=== PATIENT | female | born 1940 | race Caucasian/White ===

== ENCOUNTER 2022-03-05 14:58 | Outpatient (RCR) | payer MEDICARE, SELFPAY ==
[2022-03-05] MEDS: FAMOTIDINE 20 MG TABLET PO (15:18)
[2022-03-05] MEDS: ACETAMINOPHEN 325 MG TABLET 650 MG PO (15:18)
[2022-03-05] MEDS: diphenhydrAMINE HCl CAP 25 MG CAPSULE PO (15:18)
[2022-03-05] MEDS: BEBTELOVIMAB 175 MG/2 ML VIAL IV PUSH (15:40)
[2022-03-05 15:41] VITALS: BP 143/73; PULSE 60; RESP 20; TEMP 36.7; O2SAT 97
[2022-03-05 16:20] VITALS: BP 129/60; PULSE 60; O2SAT 98
== END 2022-03-05 16:00 ==
LOC: AMCINF 14:58
PROVIDERS: PCP Physician Assistant; Visit Provider Internal Medicine Hematology & Oncology
DX: U07.1 COVID-19 (principal); I10 Essential (primary) hypertension; I25.10 Atherosclerotic heart disease of native coronary artery without angina pectoris
CPT/HCPCS: A9270; M0222; Q0222

== ENCOUNTER → 2022-12-08 12:00 | Outpatient (CLI) | payer MEDICARE, SELFPAY ==
--- NOTE | ~2022-12-08 | XR_ITS ---
XR chest 2V 12/08/2022 12:17 Indication: Cough Procedure: 2 view chest Comparison: 11/11/2011 Findings: Heart size normal. Pacemaker leads in expected position. No focal air space disease, pulmon luis edema, pleural effusion or suspected pneumothorax. There is atherosclerosis of the aorta. There a re coarse calcifications overlying the cardiac contour. No acute osseous abnormality. Impression: 1: No acute cardiopulmonary disease. Reviewed, dictated and finalized at location L. ANICAL DRAFTER Impression: 1: No acute cardiopulmonary disease.
== END ==
PROVIDERS: PCP Family Medicine; Visit Provider Family Medicine
DX: R05.9 Cough, unspecified (principal)
CPT/HCPCS: 71046

== ENCOUNTER 2022-12-15 08:01 | Outpatient (CLI) | payer MEDICARE, SELFPAY ==
[2022-12-15 10:09] LABS: Kit Draw Collected
== END 2022-12-15 08:02 | disposition home or self-care (01) ==
LOC: ANHGOSHLAB 08:03
PROVIDERS: PCP Family Medicine; Visit Provider Family Medicine
DX: E87.1 Hypo-osmolality and hyponatremia (principal)
CPT/HCPCS: 36415

== ENCOUNTER 2023-04-02 08:15 | Outpatient (CLI) | payer MEDICARE, SELFPAY ==
[2023-04-02 16:31] LABS: Hematocrit 39.9 % (37.0-47.0); Hemoglobin 13.5 g/dL (12.0-15.0); Mean Corpuscular HGB Conc 33.8 g/dl (32-36); Mean Corpuscular Volume 97.6 fl (80-100); Mean Platelet Volume 10.5 fl (7.4-10.4); Platelet Count Result 209 k/mm3 (150-375); Red Blood Count 4.09 M/mm3 (4.2-5.4); Red Cell Distribution Width 12.4 % (11.5-14.5); White Blood Count 4.5 K/mm3 (4.5-10.0)
[2023-04-02 16:35] LABS: Hemoglobin A1C 5.6 % (<5.7)
[2023-04-02 16:43] LABS: Alanine Aminotransferase 24 U/L (6-35); Albumin Level 4.1 g/dL (3.5-5.1); Alkaline Phosphatase 102 U/L (38-126); Anion Gap 5 mmol/L (8-16); Aspartate Amino Transferase 41 U/L (14-36); Bilirubin,Total 1.4 mg/dL (0.2-1.3); Blood Urea Nitrogen 13 mg/dL (7-17); Calcium 9.5 mg/dL (8.4-10.2); Carbon Dioxide 33 mmol/L (22-30); Chloride 89 mmol/L (98-107); Cholesterol 106 mg/dL (0-200); Estimated Glomerular Filt Rate > 60; Glucose 100 mg/dL (65-110); HDL Direct 43 mg/dL; Potassium 4.2 mmol/L (3.4-5.0); Sodium 127 mmol/L (137-145); Triglycerides 103 mg/dL (<150)
[2023-04-02 16:54] LABS: LDL Cholesterol Direct 40 mg/dL
[2023-04-02 17:09] LABS: Thyroid Stimulating Hormone 0.545 uIU/mL (0.465-4.680)
== END 2023-04-02 08:16 | disposition home or self-care (01) ==
LOC: ANHGOSHLAB 08:21
PROVIDERS: PCP Family Medicine; Visit Provider Family Medicine
DX: E66.3 Overweight (principal); R73.03 Prediabetes; E78.2 Mixed hyperlipidemia; I10 Essential (primary) hypertension
CPT/HCPCS: 36415; 80053; 80061; 83036; 84443; 85027

== ENCOUNTER 2023-08-04 08:00 | Outpatient (CLI) | payer MEDICARE, SELFPAY ==
[2023-08-04 18:37] LABS: Hematocrit 43.9 % (37.0-47.0); Hemoglobin 14.8 g/dL (12.0-15.0); Mean Corpuscular HGB Conc 33.7 g/dl (32-36); Mean Corpuscular Volume 97.8 fl (80-100); Mean Platelet Volume 11.3 fl (7.4-10.4); Platelet Count Result 200 k/mm3 (150-375); Red Blood Count 4.49 M/mm3 (4.2-5.4); Red Cell Distribution Width 12.3 % (11.5-14.5); White Blood Count 6.6 K/mm3 (4.5-10.0)
[2023-08-04 18:53] LABS: Iron 109 ug/dL (37-170)
[2023-08-04 19:02] LABS: Percent Iron Saturation 29 % (20-50)
[2023-08-04 19:23] LABS: Alanine Aminotransferase 27 U/L (6-35); Albumin Level 4.6 g/dL (3.5-5.1); Alkaline Phosphatase 115 U/L (38-126); Anion Gap 7 mmol/L (8-16); Aspartate Amino Transferase 38 U/L (14-36); Bilirubin,Total 1.5 mg/dL (0.2-1.3); Blood Urea Nitrogen 27 mg/dL (7-17); Calcium 10.1 mg/dL (8.4-10.2); Carbon Dioxide 30 mmol/L (22-30); Chloride 90 mmol/L (98-107); Cholesterol 106 mg/dL (0-200); Estimated Glomerular Filt Rate 60; Glucose 101 mg/dL (65-110); HDL Direct 47 mg/dL; Potassium 4.1 mmol/L (3.4-5.0); Sodium 127 mmol/L (137-145); Triglycerides 87 mg/dL (<150)
[2023-08-04 19:34] LABS: LDL Cholesterol Direct 46 mg/dL
[2023-08-04 19:53] LABS: Thyroid Stimulating Hormone 0.835 uIU/mL (0.465-4.680)
[2023-08-04 20:28] LABS: Folic Acid 18.4 ng/mL (2.76->20)
[2023-08-04 20:37] LABS: Hemoglobin A1C 5.6 % (<5.7)
== END 2023-08-04 08:01 | disposition home or self-care (01) ==
PROVIDERS: PCP Family Medicine; Visit Provider Family Medicine
DX: D64.9 Anemia, unspecified (principal); E66.3 Overweight; E78.2 Mixed hyperlipidemia; E87.1 Hypo-osmolality and hyponatremia; I10 Essential (primary) hypertension; R73.03 Prediabetes; Z79.899 Other long term (current) drug therapy
CPT/HCPCS: 36415; 80053; 80061; 82607; 82728; 82746; 83036; 83540; 83550; 84443; 85027

== ENCOUNTER 2023-12-22 08:41 | Outpatient (CLI) | payer MEDICARE, SELFPAY ==
[2023-12-22 20:52] LABS: Alanine Aminotransferase 30 U/L (6-35); Albumin Level 4.4 g/dL (3.5-5.1); Alkaline Phosphatase 143 U/L (38-126); Anion Gap 9 mmol/L (8-16); Aspartate Amino Transferase 81 U/L (14-36); Bilirubin,Total 1.2 mg/dL (0.2-1.3); Blood Urea Nitrogen 18 mg/dL (7-17); Calcium 10.2 mg/dL (8.4-10.2); Carbon Dioxide 30 mmol/L (22-30); Chloride 91 mmol/L (98-107); Cholesterol 111 mg/dL (0-200); Estimated Glomerular Filt Rate > 60; Glucose 92 mg/dL (65-110); HDL Direct 45 mg/dL; Potassium 3.8 mmol/L (3.4-5.0); Sodium 130 mmol/L (137-145); Triglycerides 96 mg/dL (<150)
[2023-12-22 21:03] LABS: LDL Cholesterol Direct 50 mg/dL
== END 2023-12-22 08:42 | disposition home or self-care (01) ==
LOC: ANHGOSHLAB 08:43
PROVIDERS: PCP Family Medicine; Visit Provider Family Medicine
DX: R73.03 Prediabetes (principal); E66.3 Overweight; E78.5 Hyperlipidemia, unspecified; I10 Essential (primary) hypertension; Z79.899 Other long term (current) drug therapy
CPT/HCPCS: 36415; 80053; 80061; 83036

== ENCOUNTER 2024-01-20 08:22 | Outpatient (CLI) | payer MEDICARE, SELFPAY ==
[2024-01-20 13:14] LABS: Hematocrit 43.6 % (37.0-47.0); Hemoglobin 14.1 g/dL (12.0-15.0); Mean Corpuscular HGB Conc 32.3 g/dl (32-36); Mean Corpuscular Hemoglobin 32.3 pg (26-34); Mean Corpuscular Volume 99.8 fl (80-100); Mean Platelet Volume 10.7 fl (7.4-10.4); Platelet Count Result 221 k/mm3 (150-375); Red Blood Count 4.37 M/mm3 (4.2-5.4); Red Cell Distribution Width 12.4 % (11.5-14.5); White Blood Count 5.4 K/mm3 (4.5-10.0)
[2024-01-20 13:32] LABS: Alanine Aminotransferase 26 U/L (6-35); Albumin Level 4.3 g/dL (3.5-5.1); Alkaline Phosphatase 102 U/L (38-126); Anion Gap 4 mmol/L (4-12); Aspartate Amino Transferase 95 U/L (14-36); Bilirubin,Total 1.2 mg/dL (0.2-1.3); Blood Urea Nitrogen 15 mg/dL (7-17); Calcium 10.2 mg/dL (8.4-10.2); Carbon Dioxide 33 mmol/L (22-30); Chloride 94 mmol/L (98-107); Cholesterol 99 mg/dL (0-200); Estimated Glomerular Filt Rate > 60; Glucose 93 mg/dL (65-110); HDL Direct 39 mg/dL; Potassium 3.7 mmol/L (3.4-5.0); Sodium 131 mmol/L (137-145); Triglycerides 88 mg/dL (<150)
[2024-01-20 13:43] LABS: LDL Cholesterol Direct 43 mg/dL
[2024-01-20 14:02] LABS: Thyroid Stimulating Hormone 0.794 uIU/mL (0.465-4.680)
[2024-01-20 23:49] LABS: Hemoglobin A1C 5.8 % (<5.7)
== END 2024-01-20 08:23 | disposition home or self-care (01) ==
PROVIDERS: PCP Family Medicine; Visit Provider Family Medicine
DX: Z79.899 Other long term (current) drug therapy (principal); D64.9 Anemia, unspecified; E78.5 Hyperlipidemia, unspecified; E87.1 Hypo-osmolality and hyponatremia; I10 Essential (primary) hypertension; R73.03 Prediabetes; R74.8 Abnormal levels of other serum enzymes
CPT/HCPCS: 36415; 80053; 80061; 83036; 84443; 85027

== ENCOUNTER 2024-04-26 08:18 | Outpatient (CLI) | payer MEDICARE, SELFPAY ==
[2024-04-26 12:50] LABS: Hematocrit 40.5 % (37.0-47.0); Hemoglobin 13.5 g/dL (12.0-15.0); Mean Corpuscular HGB Conc 33.3 g/dl (32-36); Mean Corpuscular Hemoglobin 32.9 pg (26-34); Mean Corpuscular Volume 98.8 fl (80-100); Mean Platelet Volume 11.4 fl (7.4-10.4); Platelet Count Result 196 k/mm3 (150-375)
[2024-04-26 13:12] LABS: Alanine Aminotransferase 23 U/L (6-35); Albumin Level 4.3 g/dL (3.5-5.1); Alkaline Phosphatase 104 U/L (38-126); Anion Gap 8 mmol/L (4-12); Aspartate Amino Transferase 59 U/L (14-36); Bilirubin,Total 1.4 mg/dL (0.2-1.3); Blood Urea Nitrogen 19 mg/dL (7-17); Calcium 9.8 mg/dL (8.4-10.2); Carbon Dioxide 31 mmol/L (22-30); Chloride 93 mmol/L (98-107); Estimated Glomerular Filt Rate > 60; Glucose 86 mg/dL (65-110); Potassium 3.6 mmol/L (3.4-5.0); Sodium 132 mmol/L (137-145)
[2024-04-26 21:23] LABS: Hemoglobin A1C 6.1 % (<5.7)
== END 2024-04-26 08:19 | disposition home or self-care (01) ==
PROVIDERS: PCP Family Medicine; Visit Provider Family Medicine
DX: D64.9 Anemia, unspecified (principal); E87.1 Hypo-osmolality and hyponatremia; R73.03 Prediabetes; E78.5 Hyperlipidemia, unspecified; I10 Essential (primary) hypertension; Z79.899 Other long term (current) drug therapy
CPT/HCPCS: 36415; 80053; 83036; 85027

== ENCOUNTER 2024-09-20 12:31 | Outpatient (CLI) | payer MEDICARE, SELFPAY ==
[2024-09-20 18:57] LABS: Hematocrit 41.2 % (37.0-47.0); Hemoglobin 13.5 g/dL (12.0-15.0); Mean Corpuscular HGB Conc 32.8 g/dl (32-36); Mean Corpuscular Hemoglobin 32.2 pg (26-34); Mean Corpuscular Volume 98.3 fl (80-100); Platelet Count Result 194 k/mm3 (150-375); Red Blood Count 4.19 M/mm3 (4.2-5.4); Red Cell Distribution Width 12.6 % (11.5-14.5); White Blood Count 6.4 K/mm3 (4.5-10.0)
[2024-09-20 21:19] LABS: Alanine Aminotransferase 24 U/L (6-35); Albumin Level 4.1 g/dL (3.5-5.1); Alkaline Phosphatase 96 U/L (38-126); Anion Gap 4 mmol/L (4-12); Aspartate Amino Transferase 58 U/L (14-36); Bilirubin,Total 1.4 mg/dL (0.2-1.3); Blood Urea Nitrogen 20 mg/dL (7-17); Calcium 9.5 mg/dL (8.4-10.2); Carbon Dioxide 32 mmol/L (22-30); Chloride 91 mmol/L (98-107); Cholesterol 115 mg/dL (0-200); Estimated Glomerular Filt Rate > 60; Glucose 95 mg/dL (65-110); HDL Direct 45 mg/dL; Sodium 127 mmol/L (137-145); Triglycerides 76 mg/dL (<150)
[2024-09-20 21:30] LABS: LDL Cholesterol Direct 40 mg/dL
[2024-09-20 21:45] LABS: Thyroid Stimulating Hormone 0.774 uIU/mL (0.465-4.680)
[2024-09-21 00:29] LABS: Hemoglobin A1C 5.9 % (<5.7)
== END 2024-09-20 12:32 | disposition home or self-care (01) ==
PROVIDERS: PCP Family Medicine; Visit Provider Nurse Practitioner
DX: E78.2 Mixed hyperlipidemia (principal); E55.9 Vitamin D deficiency, unspecified; R73.03 Prediabetes
CPT/HCPCS: 36415; 80053; 80061; 82306; 83036; 84443; 85027

== ENCOUNTER 2025-02-06 08:09 | Outpatient (CLI) | payer MEDICARE, SELFPAY ==
--- OUTSIDE RECORDS SUMMARY | 2025-02-06 08:19 | XMS_ITS | Encounter Summary ---
Author Organization [facility], [facility] Address [address] [place] [address] Phone Care Team Providers Care Pipe Layer Name Role Phone Bear Love MD Primary Care Provider [phone] Unknown, Notinfile Primary Care Provider Unavail able Unknown, Notinfile Primary Care Provider Unavail able VerSharda prather DO Primary Care Provider [phone] Encounter Details Date Type Department Care Team (Late st Contact Info) Description 07/11/2017 Orders Only [facility] Provider, MD Maya [address] [place] [id number] Social History Tobacco Use Types Packs/Day Years Used Date Smoking Tobacco: Never Assessed Comments Unknown Sex and Gender Information Value Date Recorded Sex Assigned at Not on file 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 Gender Identity Not on file Sexual Orientation Not on file documented as of this encounter Plan of Treatment Not on file documented as of this encounter Procedures Procedure Name Priority Date/Time Associated Diagnosis Comments CARDIOLOGY REPORT 07/11/2017 CARDIOLOGY REPORT 07/11/2017 CARDIOLOGY REPORT 07/11/2017 CARDIOLOGY REPORT 07/11/2017 CARDIOLOGY REPORT 07/11/2017 CARDIOLOGY REPORT 07/11/2017 CARDIOLOGY REPORT 07/11/2017 documented in this encounter Results * CARDIOLOGY REPORT (07/11/2017) Anatomical Region Laterality Modality Other Narrative 07/11/2017 Ordered by an unspecified provider. Result [facility] Provider CV CARDIAC SERVICES PROCE DURES Final Result * CARDIOLOGY REPORT (07/11/2017) Anatomical Region Laterality Modality Other Narrative 07/11/2017 Ordered by an unspecified provider. Result [facility] Provider CV CARDIAC SERVICES PROCE DURES Final Result * CARDIOLOGY REPORT (07/11/2017) Anatomical Region Laterality Modality Other Narrative 07/11/2017 Ordered by an unspecified provider. Result [facility] Provider CV CARDIAC SERVICES PROCE DURES Final Result * CARDIOLOGY REPORT (07/11/2017) Anatomical Region Laterality Modality Other Narrative 07/11/2017 Ordered by an unspecified provider. [facility] Provider CV CARDIAC SERVICES PROCE DURES Final Result * CARDIOLOGY REPORT (07/11/2017) Anatomical Region Laterality Modality Other Narrative 07/11/2017 Ordered by an unspecified provider. Result [facility] Provider CV CARDIAC SERVICES PROCE DURES Final Result * CARDIOLOGY REPORT (07/11/2017) Anatomical Region Laterality Modality Other Narrative 07/11/2017 Ordered by an unspecified provider. Result [facility] Provider CV CARDIAC SERVICES PROCE DURES Final Result * CARDIOLOGY REPORT (07/11/2017) Anatomical Region Laterality Modality Other Narrative 07/11/2017 Ordered by an unspecified provider. [facility] Provider CV CARDIAC SERVICES PROCE DURES Final Result documented in this encounter Visit Diagnoses Not on filedocumented in this encounter Care Teams Pipe Layer Relationship Specialty Start Date End Date Bear Love MD [address] [place] [address] PCP - General 06/28/17 06/14/20 Unknown, Notinfile PCP - General 06/17/20 11/05/21 Unknown, Notinfile PCP - General 06/15/20 06/16/20 Sharda Calabrese DO PCP - General Family Medicine 11/06/21 documented as of this encounter
--- OUTSIDE RECORDS SUMMARY | 2025-02-06 08:19 | XMS_ITS | Clinical Summary ---
Author Organization [facility] Address [address] [place] [address] Care Team Providers Care Germ Drier Name Role Phone Sharda Calabrese DO Primary Care Provider [phone] Allergies Active Allergy Reactions Criticality Noted Date Comments Latex Hives,Rash Medium Spider Venom Rash Medium Sulfa (Sulfonamide Antibiotics) Hives,Rash Medium Medications ELIQUIS 5 mg tablet Take 1 tablet (5 mg total) by mouth 2 (two) times a day 8 Active atorvastatin (LIPITOR) 40 mg tablet Take 1 tablet (40 mg total) by mouth daily 8 Active LUMIGAN 0.01 % ophthalmic drops Administer 1 drop into both eyes nightly 8 Active COMBIGAN 0.2-0.5 % ophthalmic solution Administer 1 drop into both eyes 2 (two) times a day 8 Active irbesartan (AVAPRO) 300 mg tablet Take 1 tablet (300 mg total) by mouth daily 8 Active docosahexanoic acid/epa (FISH OIL ORAL) Take 1 capsule by mouth daily Active famotidine (PEPCID) 20 mg tablet Take 20 mg by mouth 2 (two) times a day Active cholecalciferol (VITAMIN D-3) 1,000 unit capsule Take 1 capsule (1,000 Units total) by mouth daily Active loratadine (CLARITIN) 10 mg tablet Take 1 tablet (10 mg total) by mouth daily 3 Active omeprazole (PriLOSEC) 20 mg capsule Take 1 capsule (20 mg total) by mouth 2 (two) times a day 3 Active chlorthalidone (HYGROTON) 25 mg tabletIndications :Primary hypertension Take 1 tablet (25 mg total) by mouth daily 90 tablet 3 4 Active mupirocin (BACTROBAN) 2 % ointment Apply topically 2 (two) times a day 22 g 4 Active Active Problems Problem Noted Date Diagnosed Date Abnormal levels of other serum enzymes 4 Anemia, unspecified 07/12/2024 Mixed hyperlipidemia 07/12/2024 Hypo-osmolality and hyponatremia 07/12/2024 Metabolic syndrome 07/12/2024 Overweight 07/12/2024 Prediabetes 07/12/2024 Vitamin D deficiency, unspecified 07/12/2024 Benign colon polyp 04/14/2023 Renal cell carcinoma 12/09/2022 Liver abscess 01/27/2022 Assessment & Plan (02/24/2022 9:52 PM CDT): Summary: 81 y.o. female w/PMH of cholecystectomy and renal cancer s/p R- nephrectomy, here for follow-up in the ID Clinic after a recent admission for liver abscess - CT (01/09/22): multifocal ~10 cm intrahepatic abscess + 2.2 cm hepatic abscess in segment 8 (not drained) + 6.2 x 4.6 cm perisplenic collection (not drained). - s/p IR drain (01/10) --removed on 02/04/22. 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 Previously seen phlegmon in segment 8 has also resolved. Resolved perisplenic collection. No intraabdominal fluid collections. Pt has completed 6+ weeks of antimicrobial therapy and doing well with interval repeat a CT showing resolution of the smaller, undrained abscesses in segment 8 and perisplenic region. PLAN - Will stop current PO antimicrobial today and no further ID follow-up warranted. RTC PRN Assessment & Plan (01/27/2022 9:13 PM CDT): Summary: 81 y.o. female w/PMH of cholecystectomy and renal cancer s/p R- nephrectomy, here for follow-up in the ID Clinic after a recent admission for liver abscess - CT (01/09/22): multifocal ~10 cm intrahepatic abscess + 2.2 cm hepatic abscess in segment 8 (not drained) + 6.2 x 4.6 cm perisplenic collection (not drained). - s/p IR drain (01/10) with evacuation of purulent fluid. - abscess fluid cultures (+) Fusobacterium nucleatum - drain exchanged today by IR (next IR appointment 02/04) reports Improving collection with no fistula seen. - Current antibiotic regimen is: ceftriaxone 2g IV q24h + metronidazole 500 mg PO q8h --Start date: 01/10/22 - Adverse effects from antibiotics: loose stools Pt has completed 2.5 weeks of IV antimicrobial therapy and doing well with interval decrease drain output. Given the good clinical course we'll switch to PO amox to complete therapy and plan to repeat a CT w/contrast one month since the last to assess the smaller, undrained abscesses. PLAN - check CRP today -->1.3 - Will stop current IV antimicrobial and switch to PO amoxicillin/clavulanate 875 mg q12h to complete treatment - given smaller undrained abscesses in segment 8 and perisplenic, we'll repeat CT one month after last imaging (02/14-02/24) and before her follow-up appointment on 02/24 - While on IV antimicrobials we'll continue to monitor CBC, CMP RTC on 02/24/22 Hypervolemia, unspecified hypervolemia type /01/2022 Anticoagulant long-term use 02/07/2019 Epiretinal membrane (ERM) of left eye 10/04/2018 Assessment & Plan (12/13/2018 9:54 AM MACHINE TOOL MECHANIC): Stable with some CME 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 05/24/2018 Assessment & Plan (12/13/2018 9:55 AM MACHINE TOOL MECHANIC): cystoid macular edema (CME) improving status post (s/p) JAMAAL left eye (OS) 8 weeks ago, noncentral with overlying ERM Mild and noncentral mild CME OS, observe for now She will be seeing Dr Isabel in [facility] 3-4 months Assessment & Plan (10/04/2018 9:55 AM MACHINE TOOL MECHANIC): cystoid macular edema (CME) improving status post (s/p) JAMAAL left eye (OS) 8 weeks ago, noncentral with overlying ERM Assessment & Plan (08/09/2018 11:12 AM CDT): cystoid macular edema (CME) improving status post (s/p) JAMAAL left eye (OS) 7 weeks ago JAMAAL left eye (OS) today and increased interval to 9-10 weeks OCT both eyes (OU) no dilation Assessment & Plan (06/21/2018 1:06 PM CDT): Here for eylea left eye (OS) Given the dramatic cystoid macular edema (CME) improvement after last injection 4 weeks ago, will treat and extend Assessment & Plan (05/24/2018 1:20 PM CDT): -Superior vein occlusion with significant macular edema -Would suggest JAMAAL left eye (OS) today [id number] x 3 months and then follow up to help reduce risk for eventual neovascularization elsewhere (NVE)/NVI and o treat edema Bilateral pseudophakia 05/24/2018 Complete atrioventricular block 06/24/2017 Bradycardia 05/21/2017 Glaucoma 01/24/2016 Assessment & Plan (08/09/2018 11:12 AM CDT): Keep f/u Dr Isabel Assessment & Plan (05/24/2018 12:58 PM CDT): Management per Dr. 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 01/24/2016 Benign neoplasm of soft tissues 09/25/2014 Postinflammatory hyperpigmentation 09/25/2014 Milia 10/03/2013 Skin tag 10/03/2013 Sensorineural hearing loss (SNHL) of both ears 1 10/24/2012 Encounters Date Type Department Care Team Description 12/07/2024 10:45 AM MACHINE TOOL MECHANIC Office Visit [facility] [address] [facility] [address], [address] [place] [address] Taz Burnette MD PhD Persistent atrial fibrillation (HCC) (Primary Dx); Essential hypertension; Mixed hyperlipidemia; Renal cell carcinoma of right kidney (HCC); Complete atrioventricular block (HCC); Atrial fibrillation, unspecified type (HCC); Bradycardia 11/23/2024 Telephone [facility] [address] [facility] [address] [place] [address] [place] [address] Taz Burnette MD PhD left shoulder pain from Last 3 Months Surgical History Surgery Date Site/Laterality Comments DC CHOLECYSTECTOMY Cholecystectomy - (Added by TW Conv) DC TONSILLECTOMY PRIMARY/SECONDARY <AGE 12 Tonsillectomy - (Added by TW Conv) DC NEPHRECTOMY W/PRTL URETERECTOMY W/OPEN RIB RESCJ Nephrectomy - 1996, cancer (Added by TW Conv) CATARACT EXTRACTION INTRAOCULAR LENS INSERTION CENTRAL LINE PLACEMENT > 5 YEARS 01/15/2022 N/A IMAGE GUIDED DRAINAGE VISCER AL FLUID COLLECTION 01/10/2022 N/A ABSCESS CATHETER INJECTION 01/27/2022 N/A ABSCESS CATHETER INJECTION 02/04/2022 N/A Medical History Medical History Date Comments Cerebral infarction (HCC) Cardio embolic stroke - L MCA, in setting of atrial fibrillation (Added by TW Conv) Glaucoma 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 Never 02/04/2022 Average Number of Drinks Not on file 022 Q3: How often do you have si x or more drinks on one occasion? Never 02/04/2022 Personal Safety Answer Date Recorded Have you ever been in or are you currently in a harmful physical or emotional relationship or is someone making you feel afraid or unsafe? 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 Gender Identity Not on file Sexual Orientation Not on file Obstetrics History Last Filed Vital Signs Vital Sign Reading Time Taken Comments Blood Pressure 133/63 12/07/2024 11:33 AM MACHINE TOOL MECHANIC Pulse 60 12/07/2024 11:33 AM MACHINE TOOL MECHANIC Temperature 36.8 C (98.3 F) 12/07/2024 11:33 AM MACHINE TOOL MECHANIC Respiratory Rate 17 12/07/2024 11:33 AM MACHINE TOOL MECHANIC Oxygen Saturation 95% 12/07/2024 11:33 AM MACHINE TOOL MECHANIC Inhaled Oxygen Concentration - - Weight 60.4 kg (133 lb 3.2 oz) 12/07/2024 11:33 AM MACHINE TOOL MECHANIC Height 154.9 cm (5' 0.98 ) 12/07/2024 11:[address] Body Mass Index 25.18 12/07/2024 11:33 AM MACHINE TOOL MECHANIC Plan of Treatment Health Maintenance Due Date Last Done Comments Depression Screening 1940 Hepatitis B Screening 1958 Pneumococcal vaccine 65+ (1 of 2 - PCV) 1959 Zoster Vaccine (1 of 2) 1990 Well Visit 65+ 2005 DTaP/Tdap/Td Vaccine (1 - Tdap) 05/05/2019 9 Osteoporosis Screening-Bone Density Scan 05/03/2020 05/03/2018, 04/22/2017 Fall Risk Assessment 05/26/2024 05/26/2023 Influenza Vaccine (Season Ended) 2025 07/04/2019, 07/14/2018, 08/13/2015 Procedures Procedure Name Priority Date/Time Associated Diagnosis Comments DEXA AXIAL SKELETON BONE DENSITY 1 OR MORE SITES Schedule Routine, Read Routine (OP Routine) 05/03/2018 1:08 PM CDT Symptomatic menopausal or female climacteric states Osteopenia of left hip Monitoring for anticoagulant use from Last 3 Months or Most Recently Relevant to Health Maintenance Results * Dexa Axial Skeleton Bone Density 1 or 2 Site (05/03/2018 1:08 PM CDT) Anatomical Region Laterality Modality Body N/A Radiographic Angelina ging Narrative 05/03/2018 1:36 PM CDT .' Patient Name: Helen Haas Date of : 1940 Date of scan: 05/03/2018 Bone mineral density was performed on a HoloMeitu Discovery Densitometer. Machine Cross-calibration and Precision studies have been performed with a least significant change of 0.024 g/cm at the spine, 0.020 g/cm at the total proximal femur, and 0.014g/cm at the forearm. HISTORY: This is a 78 y.o. postmenopausal female with a history of low bone mass. Currently on treatment with vitamin D and anticoagulants. History of tobacco use: History Smoking Status Never Smoker INDICATIONS: Menopause status, history of prior wrist fracture and history of low bone mass. FINDINGS: BONE MINERAL DENSITY OF THE LUMBAR SPINE Bone Mineral Density (BMD) of the lumbar spine was measured from L1-L4 and the average density was calculated to be 1.167 gm/cm. This corresponds to a T-score standard deviations from the mean of young adults of 1.1. When compared to the previous study of 04/22/17 there has been no significant change noted. BONE MINERAL DENSITY OF THE PROXIMAL FEMUR Bone Mineral Density (BMD) of the left hip total was found to be 0.862 gm/cm2. This corresponds to a T-score standard deviations from the mean of young adults of -0.7. Femoral neck is 0.628 gm/cm2 with a T-score of -2.0. When compared to the previous study of 04/22/17 there has been no significant change noted. SUMMARY: Bone mineral density shows evidence of low bone mass in the hip and moderately increased fracture risk. There has been no significant changes in bone mineral density since previous measurement ADDITIONAL COMMENTS: If the patient has a history of a fragility fracture, a fracture that occurred with trauma equivalent to a fall from a standing position or less, then the diagnosis is osteoporosis. The risk of osteoporotic fracture increases approximately 2-fold for each 1.0 SD decrease in T-score. However, low bone density is not the only risk factor for fracture. Other factors include patient s age, previous osteoporotic fracture or prior fracture as an adult, loss of height of greater than 2 inches, corticosteroid use, risk of falling, risk of injury, and family history of osteoporosis. Not everyone with low bone mineral density has osteoporosis. Osteomalacia and other metabolic bone disorders should also be considered where indicated. Patients who have osteoporosis should be evaluated for specific diseases and conditions (secondary causes) that may cause or contribute to bone loss. Consider repeating this study in 1-2 years to assess the patient s response to treatment, if applicable. It is recommended that any follow up exam be performed on the same machine if possible for better accuracy. DEFINITIONS: Osteoporosis: BMD at or below -2.5 T-score Osteopenia (low bone mass): BMD between -1.0 and-2.5 T-score. The Bone Health Program adopts the following WHO definitions: Osteoporosis: BMD below -2.5 S.D. as compared to the BMD of young normal adults. Osteopenia or Low Bone Mass: BMD between -1.0 and -2.5 S.D. below the BMD of young normal adults. Normal Bone Density: BMD equal to or greater than -1.0 S.D. as compared to the BMD of young normal adults. References: 1) Bravo, Annals of Internal Medicine 114(11): 919-923 (1990) 2) Powell, Lancet 341 : 72-75 (1992) 3) Black, Journal Bone and Mineral Research 7(6): 633-8 (1991) 4) Gregg, Journal Bone and Mineral Research 8(10):1227-33 (1992) The history and data sections of the bone mineral density scan were prepared by Michaela CHÁVEZ(R) who is accredited by the International Society of Clinical Densitometry. The overall patient assessment and scan interpretation were performed by Marta Smith M.D. who is certified by the International Society of Clinical Densitometry. Marta Smith MD IM DXA PROCEDURES Final Re sult from Last 3 Months or Most Recently Relevant to Health Maintenance Insurance [employer] MEDICARE [facility] ADV REF [facility] ADV REF AET MEDICARE Advance Directives For more information, please contact: [phone] * Full Code (Latest Code Status on File) Date Activated Date Inactivated Comments 05/26/2023 12:08 PM 05/26/2023 6:31 PM * Full Code Date Activated Date Inactivated Comments 05/25/2022 4:09 PM 05/25/2022 10:06 PM * Full Code Date Activated Date Inactivated Comments 02/04/2022 9:52 AM 02/04/2022 2:52 PM * Full Code Date Activated Date Inactivated Comments 01/09/2022 1:25 AM 01/16/2022 10:36 PM Care Teams Germ Drier Relationship Specialty Start Date End Date Sharda Calabrese DO PCP - General Family Medicine 11/06/21
--- OUTSIDE RECORDS SUMMARY | 2025-02-06 08:19 | XMS_ITS | Encounter Summary ---
Author Organization [facility] Address [address] [place] [address] Phone Care Team Providers Care Emergency Specialist Name Role Phone Bear Love MD Primary Care Provider [phone] Unknown, Notinfile Primary Care Provider Unavail able Unknown, Notinfile Primary Care Provider Unavail able VerSharda prather DO Primary Care Provider +1- [phone] Encounter Details Date Type Department Care Team (Late st Contact Info) Description 12/23/2017 Orders Only [facility] Provider, MD Maya [address] [place] [address] Social History Tobacco Use Types Packs/Day Years Used Date Smoking Tobacco: Never Comments Unknown Sex and Gender Information Value Date Recorded Sex Assigned at Not on file 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 Historical Provider [facility] [place] Final Result documented in this encounter Visit Diagnoses Not on filedocumented in this encounter Care Teams Emergency Specialist Relationship Specialty Start Date End Date Bear Love MD [address] [place] [address] PCP - General 06/28/17 06/14/20 Unknown, Notinfile PCP - General 06/17/20 11/05/21 Unknown, Notinfile PCP - General 06/15/20 06/16/20 Sharda Calabrese DO PCP - General Family Medicine 11/06/21 documented as of this encounter
--- OUTSIDE RECORDS SUMMARY | 2025-02-06 08:19 | XMS_ITS ---
Author Organization [facility] Address [address] [place] [address] Care Team Providers Care Court Messenger Name Role Phone Sharda Calabrese DO Primary Care Provider [phone] Active Problems Problem Noted Date Diagnosed Date Abnormal levels of other serum enzymes Anemia, unspecified 07/12/2024 Mixed hyperlipidemia 07/12/2024 Hypo-osmolality [...] RTC on 02/24/22 Hypervolemia, unspecified hypervolemia type /2 01/2022 Anticoagulant long-term use 02/07/2019 Epiretinal membrane (ERM) of left eye 10/04/2018 Assessment & Plan (12/13/2018 9:54 AM COUNTERINTELLIGENCE/HUMINT SPECIALIST): Stable with some CME 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 05/24/2018 Assessment & Plan (12/13/2018 9:55 AM COUNTERINTELLIGENCE/HUMINT SPECIALIST): cystoid macular edema (CME) improving status post (s/p) JAMAAL left eye (OS) 8 weeks ago, noncentral with overlying ERM Mild and noncentral mild CME OS, observe for now She will be seeing Dr Isabel in [facility] 3-4 months Assessment & Plan (10/04/2018 9:55 AM COUNTERINTELLIGENCE/HUMINT SPECIALIST): cystoid macular edema (CME) improving status post [...] -Would suggest JAMAAL left eye (OS) today [id number] x 3 months and then follow up [...] loss (SNHL) of both ears 1 10/24/2012 Current Treatment and Therapy Plans No current plan information found. Past Treatment and Therapy Plans No past plan information found. Lifetime Dose Tracking * Chemical Lifetime Dose Automatic Entry Manual Entr y Fluoro Time 6 minutes 6 minutes 0 minutes Air kerma at the reference point (Ka,r) 35 mGy 3 5 mGy 0 mGy DLP 1,834 mGycm 1,834 mGycm 0 mGycm
--- OUTSIDE RECORDS SUMMARY | 2025-02-06 08:19 | XMS_ITS | Referral Summary ---
Author Organization [facility] Address [address] [place] [address] Care Team Providers Care Cam Specialist Name Role Phone Sharda Calabrese DO Primary Care Provider [phone] Encounters Date Type Department Care Team Description 12/07/2024 10:45 AM POST GRADUATE INTERN Office Visit [facility] Cardiology [address], [address] [place] [id number] Taz Burnette MD PhD Persistent atrial fibrillation (HCC) (Primary Dx); Essential hypertension; Mixed hyperlipidemia; Renal cell carcinoma of right kidney (HCC); Complete atrioventricular block (HCC); Atrial fibrillation, unspecified type (HCC); Bradycardia 11/23/2024 Telephone [facility] Cardiology [address] 8[address] [place] [address] [place] [phone] Taz Burnette MD PhD left shoulder pain from Last 3 Months Allergies Active Allergy Reactions Criticality Noted Date [...] 10/04/2018 Assessment & Plan (12/13/2018 9:54 AM POST GRADUATE INTERN): Stable with some CME 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 05/24/2018 Assessment & Plan (12/13/2018 9:55 AM POST GRADUATE INTERN): cystoid macular edema (CME) improving status post (s/p) JAMAAL left eye (OS) 8 weeks ago, noncentral with overlying ERM Mild and noncentral mild CME OS, observe for now She will be seeing Dr Isabel in [facility] 3-4 months Assessment & Plan (10/04/2018 9:55 AM POST GRADUATE INTERN): cystoid macular edema (CME) improving status post [...] -Would suggest JAMAAL left eye (OS) today [id number] x 3 months and then follow up [...] loss (SNHL) of both ears 1 10/24/2012 Social History Tobacco Use Types Packs/Day Years [...] on file Legal Sex Female 12:10 PM POST GRADUATE INTERN Gender Identity Not on file Sexual Orientation Not on file Last Filed Vital Signs Vital Sign Reading Time Taken Comments Blood Pressure 133/63 12/07/2024 11:33 AM POST GRADUATE INTERN Pulse 60 12/07/2024 11:33 AM POST GRADUATE INTERN Temperature 36.8 C (98.3 F) 12/07/2024 11:33 AM POST GRADUATE INTERN Respiratory Rate 17 12/07/2024 11:33 AM POST GRADUATE INTERN Oxygen Saturation 95% 12/07/2024 11:33 AM POST GRADUATE INTERN Inhaled Oxygen Concentration - - Weight 60.4 kg (133 lb 3.2 oz) 12/07/2024 11:33 AM POST GRADUATE INTERN Height 154.9 cm (5' 0.98 ) 12/07/2024 11:33 AM C Body Mass Index 25.18 12/07/2024 11:33 AM POST GRADUATE INTERN Plan of Treatment Not on file Procedures Procedure Name Priority Date/Time Associated Diagnosis [...] Bone mineral density was performed on a HoloTailored Discovery Densitometer. Machine Cross-calibration and Precision studies [...] Powell, Lancet 341 : 72-75 (1992) 3) Jigar, Journal Bone and Mineral Research 7(6): 633-8 (1991) 4) Cristino, Journal Bone and Mineral Research 8(10):1227-33 (1992) The history and data sections of the bone mineral density scan were prepared by Michaela DUVAL) who is accredited by the International Society of Clinical Densitometry. The overall patient assessment and scan interpretation were performed by Marta Smith M.D. who is certified by the International Society of Clinical Densitometry. us Marta Smith MD IMG DXA PROCEDURES Final Re sult from Last 3 Months or Most Recently Relevant to Health Maintenance Insurance [employer] MEDICARE [facility] ADV REF [facility] REF A[employer] MEDICARE Advance Directives For more information, please contact: [phone] * Full Code (Latest Code Status on File) Date Activated Date Inactivated Comments 05/26/2023 12:08 PM 05/26/2023 6:31 PM * Full Code Date Activated Date Inactivated Comments 05/25/2022 4:09 PM 05/25/2022 10:06 PM * Full Code Date Activated Date Inactivated Comments 02/04/2022 9:52 AM 02/04/2022 2:52 PM * Full Code Date Activated Date Inactivated Comments 01/09/2022 1:25 AM 01/16/2022 10:36 PM Care Teams Cam Specialist Relationship Specialty Start Date End Date Sharda Calabrese DO PCP - General Family Medicine 11/06/21
--- OUTSIDE RECORDS SUMMARY | 2025-02-06 08:19 | XMS_ITS | Encounter Summary ---
Author Organization [facility] Address [address] [place] [address] Phone Care Team Providers Care Mothercraft Nurse Name Role Phone Bear Love MD Primary Care Provider [phone] Unknown, Notinfile Primary Care Provider Unavail able Unknown, Notinfile Primary Care Provider Unavail able VerSharda prather DO Primary Care Provider [phone]- [phone] Encounter Details Date Type Department Care Team (Late st Contact Info) Description 07/06/2017 Orders Only [facility] ProviderMaya MD [address] [place] [id number] Social History Tobacco Use Types Packs/Day Years Used Date Smoking Tobacco: Never Assessed Comments Unknown Sex and Gender Information Value Date Recorded Sex Assigned at Not on file Legal Sex Female 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 Gender Identity Not on file Sexual Orientation Not on file documented as of this encounter Plan of Treatment Not on file documented as of this encounter Procedures Procedure Name Priority Date/Time Associated Diagnosis Comments CARDIOLOGY REPORT 07/06/2017 CARDIOLOGY REPORT 07/06/2017 CARDIOLOGY REPORT 07/06/2017 CARDIOLOGY REPORT 07/06/2017 CARDIOLOGY REPORT 07/06/2017 CARDIOLOGY REPORT 07/06/2017 CARDIOLOGY REPORT 07/06/2017 CARDIOLOGY REPORT 07/06/2017 documented in this encounter Results * CARDIOLOGY REPORT (07/06/2017) Anatomical Region Laterality Modality Other Narrative 07/06/2017 Ordered by an unspecified provider. Result [facility] Provider MD CV CARDIAC SERVICES PROCE DURES Final Result * CARDIOLOGY REPORT (07/06/2017) Anatomical Region Laterality Modality Other Narrative 07/06/2017 Ordered by an unspecified provider. [facility] Provider CV CARDIAC SERVICES PROCE DURES Final Result * CARDIOLOGY REPORT (07/06/2017) Anatomical Region Laterality Modality Other Narrative 07/06/2017 Ordered by an unspecified provider. Result [facility] Provider CV CARDIAC SERVICES PROCE DURES Final Result * CARDIOLOGY REPORT (07/06/2017) Anatomical Region Laterality Modality Other Narrative 07/06/2017 Ordered by an unspecified provider. Result [facility] Provider CV CARDIAC SERVICES PROCE DURES Final Result * CARDIOLOGY REPORT (07/06/2017) Anatomical Region Laterality Modality Other Narrative 07/06/2017 Ordered by an unspecified provider. Result [facility] Provider CV CARDIAC SERVICES PROCE DURES Final Result * CARDIOLOGY REPORT (07/06/2017) Anatomical Region Laterality Modality Other Narrative 07/06/2017 Ordered by an unspecified provider. Result [facility] Provider CV CARDIAC SERVICES PROCE DURES Final Result * CARDIOLOGY REPORT (07/06/2017) Anatomical Region Laterality Modality Other Narrative 07/06/2017 Ordered by an unspecified provider. Result [facility] Provider CV CARDIAC SERVICES PROCE DURES Final Result * CARDIOLOGY REPORT (07/06/2017) Anatomical Region Laterality Modality Other Narrative 07/06/2017 Ordered by an unspecified provider. Result [facility] Provider CV CARDIAC SERVICES PROCE DURES Final Result documented in this encounter Visit Diagnoses Not on filedocumented in this encounter Care Teams Mothercraft Nurse Relationship Specialty Start Date End Date Bear Love MD [address] [place] [address] PCP - General 06/28/17 06/14/20 Unknown, Notinfile PCP - General 06/17/20 11/05/21 Unknown, Notinfile PCP - General 06/15/20 06/16/20 Sharda Calabrese DO PCP - General Family Medicine 11/06/21 documented as of this encounter
--- OUTSIDE RECORDS SUMMARY | 2025-02-06 08:19 | XMS_ITS | Encounter Summary ---
Author Organization [facility] Address [address] [place] [address] Care Team Providers Care Outside Repairer Special Name Role Phone Sharda Calabrese DO Primary Care Provider [phone]- [phone] Reason for Visit * Reason Onset Date Comments Ready to scheduled 04/23/2022 Encounter Details Date Type Department Care Team (Late st Contact Info) Description 04/23/2022 Telephone [facility] Specialty Services [address] [place] [phone] Miscellaneous, Not In File Ready to scheduled Social History Tobacco Use Types Packs/Day Years Used Date Smoking Tobacco: Never Smokeless Tobacco: Never Alcohol Use Standard Drinks/Week Comments Not Currently 0 (1 standard drink = 0.6 oz pur e alcohol) AUDIT-C Answer Date Recorded Q1: How often do you have a drink containing alc ohol? Never 02/04/2022 Average Number of Drinks Not on file 022 Q3: How often do you have si x or more drinks on one occasion? 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
[2025-02-06 11:05] LABS: Hemoglobin 13.3 g/dL (12.0-15.0); Mean Corpuscular HGB Conc 32.4 g/dl (32-36); Mean Corpuscular Hemoglobin 31.8 pg (26-34); Mean Corpuscular Volume 98.1 fl (80-100); Mean Platelet Volume 10.8 fl (7.4-10.4); Platelet Count Result 181 k/mm3 (150-375); Red Blood Count 4.18 M/mm3 (4.2-5.4); Red Cell Distribution Width 13.2 % (11.5-14.5); White Blood Count 5.1 K/mm3 (4.5-10.0)
[2025-02-06 11:17] LABS: Alanine Aminotransferase 24 U/L (6-35); Albumin Level 4.3 g/dL (3.5-5.1); Alkaline Phosphatase 105 U/L (38-126); Anion Gap 10 mmol/L (4-12); Aspartate Amino Transferase 55 U/L (14-36); Bilirubin,Total 1.2 mg/dL (0.2-1.3); Blood Urea Nitrogen 24 mg/dL (7-17); Calcium 9.8 mg/dL (8.4-10.2); Carbon Dioxide 31 mmol/L (22-30); Chloride 89 mmol/L (98-107); Cholesterol 105 mg/dL (0-200); Estimated Glomerular Filt Rate > 60; Glucose 94 mg/dL (65-110); HDL Direct 49 mg/dL; Potassium 4.1 mmol/L (3.4-5.0); Sodium 130 mmol/L (137-145); Triglycerides 63 mg/dL (<150)
[2025-02-06 11:33] LABS: LDL Cholesterol Direct < 30 mg/dL
[2025-02-06 11:48] LABS: Hemoglobin A1C 5.9 % (<5.7)
== END 2025-02-06 08:10 | disposition home or self-care (01) ==
LOC: ANHGOSHLAB 08:10
PROVIDERS: PCP Family Medicine; Visit Provider Nurse Practitioner
DX: E78.2 Mixed hyperlipidemia (principal); I48.91 Unspecified atrial fibrillation; E55.9 Vitamin D deficiency, unspecified; R73.03 Prediabetes
CPT/HCPCS: 36415; 80053; 80061; 82306; 83036; 85027

== ENCOUNTER 2025-07-09 08:20 | Outpatient (CLI) | payer MEDICARE, SELFPAY ==
[2025-07-09 13:07] LABS: Alanine Aminotransferase 23 U/L (6-35); Albumin Level 4.2 g/dL (3.5-5.1); Alkaline Phosphatase 109 U/L (38-126); Anion Gap 6 mmol/L (4-12); Aspartate Amino Transferase 51 U/L (14-36); Bilirubin,Total 1.0 mg/dL (0.2-1.3); Blood Urea Nitrogen 20 mg/dL (7-17); Calcium 9.8 mg/dL (8.4-10.2); Carbon Dioxide 32 mmol/L (22-30); Chloride 98 mmol/L (98-107); Cholesterol 100 mg/dL (0-200); Estimated Glomerular Filt Rate > 60; Glucose 89 mg/dL (65-110); HDL Direct 41 mg/dL; Potassium 4.4 mmol/L (3.4-5.0); Sodium 136 mmol/L (137-145); Total Protein 7.5 g/dL (6.3-8.2); Triglycerides 68 mg/dL (<150)
[2025-07-09 13:47] LABS: Hematocrit 43.4 % (37.0-47.0); Hemoglobin 13.8 g/dL (12.0-15.0); Mean Corpuscular HGB Conc 31.8 g/dl (32-36); Mean Corpuscular Hemoglobin 32.0 pg (26-34); Mean Corpuscular Volume 100.7 fl (80-100); Platelet Count Result 176 k/mm3 (150-375); Red Blood Count 4.31 M/mm3 (4.2-5.4); White Blood Count 5.5 K/mm3 (4.5-10.0)
[2025-07-09 14:53] LABS: Hemoglobin A1C 6.0 % (<5.7)
== END 2025-07-09 08:21 | disposition home or self-care (01) ==
PROVIDERS: PCP Family Medicine; Visit Provider Nurse Practitioner
DX: E55.9 Vitamin D deficiency, unspecified (principal); E78.2 Mixed hyperlipidemia; R73.03 Prediabetes; I48.91 Unspecified atrial fibrillation
CPT/HCPCS: 36415; 80053; 80061; 82306; 83036; 85027

== ENCOUNTER 2025-08-15 14:57 | Outpatient (CLI) | payer MEDICARE, SELFPAY ==
--- NOTE | ~2025-08-15 | DEXA_ITS ---
Bone Density Report Name: RUBEN MARQUEZ Age: 85 Sex: Female Ethnicity: White Date of : 1940 Indication: postmenopausal; screening for osteoporosis; height loss; prior fracture; cancer; Referring Provider: Sharda Calabrese Study: Bone densitometry was performed. Exam Date: August 15, 2025 Accession number: [id number] Bone Density: Region BMD T-score Z-score Classification AP Spine(L1, L2, L3) 1.029 0.1 2.9 Normal Femoral Neck (Left) 0.498 -3.2 -0.6 Osteoporosis Total Hip (Left) 0.744 -1.6 0.7 Osteopenia Femoral Neck (Right) 0.561 -2.6 -0.1 Osteoporosis Total Hip (Right) 0.781 -1.3 1.0 Osteopenia Total Hip Mean 0.762 -1.5 0.9 Osteopenia World Health Organization criteria for BMD impression classify patients as: Normal (T-score at or above -1.0), Osteopenia (T-score between -1.0 and -2.5), or Osteoporosis (T-score at or below -2.5). 10-year Fracture Risk: FRAX not reported because: Some T-score for Spine Total or Hip Total or Femoral Neck at or below -2.5 Clinical Information Provided by Patient: Has had a low trauma fracture Has used the following medications: Vitamin D, Calcium Has the following medical conditions: Cancer, Kidney cancer Patient maximum height was 62 Menopause Age: 45 Drinks caffeinated beverages Onset of menses at age 13 Number of children 2 Missed period for more than 6 months in a row Impression: The patient has established osteoporosis, based on the Left Femoral Neck T-score and the existence of a prior fracture. The patient has risk factors, including: previous fracture. Discussion: HIGH RISK OF FRACTURE. BONE DENSITY IS UNDESIRABLY LOW AT ONE OR MORE SKELETAL SITES, CONSISTENT WITH POSTMENOPAUSAL OSTEOPOROSIS. This patient's lowest T-score, in a patient who has previously fractured, meets the World Health Organization's (WHO) criteria for severe osteoporosis. In untreated patients, the risk of osteoporotic fracture increases approximately two-fold for each 1.0 SD decrease in T-score. Low bone density is not the only risk factor for fracture; also consider factors such as patient's age, frailty or poor health, risk of falling, risk of injury, previous osteoporotic fracture, family history of osteoporosis, cigarette smoking, low body weight, etc. Not everyone with low bone mineral density has osteoporosis; osteomalacia and other metabolic bone disorders should also be considered. Patients who have osteoporosis should be evaluated for specific diseases and conditions (secondary causes) that may cause or contribute to bone loss. The [place] [employer] Clinical Endocrinologists (AACE) and National Osteoporosis Foundation (NOF) recommend pharmacologic intervention for all postmenopausal women whose T-score is in this range. The patient should follow a healthful lifestyle (good nutrition with adequate calcium and vitamin D, and appropriate weight-bearing exercise). Follow-Up: Consider a repeat BMD and Vertebral Fracture Assessment (VFA) exam in 2 years or sooner if medically necessary, to reassess this patient's status. Reported by: SHANNON on 08/15/2025 3:31:00 PM. Reviewed, dictated and finalized at location A.
== END 2025-08-15 14:58 | disposition home or self-care (01) ==
LOC: MICIMG 14:58
PROVIDERS: PCP Family Medicine; Visit Provider Family Medicine
DX: M85.88 Other specified disorders of bone density and structure, other site (principal); M81.0 Age-related osteoporosis without current pathological fracture; M85.852 Other specified disorders of bone density and structure, left thigh; M85.851 Other specified disorders of bone density and structure, right thigh
CPT/HCPCS: 77080